=== PATIENT | female | born 1950 | race Caucasian/White ===

== ENCOUNTER → 2017-04-14 | Outpatient (CLI) | payer MEDICARE, OTHER ==
--- NOTE | 2017-04-14 11:39 | Diagnostic Imaging Report ---
INDICATION: Screening. TECHNIQUE: Screening digital mammography was performed bilaterally with a Computer Aided Detection (CAD) system. COMPARISON: 03/31/2016, 03/29/2015, and 03/22/2014. FINDINGS: There is a moderate amount of residual fibroglandular tissue bilaterally. There is no dominant mass, spiculated lesion, or suspicious calcification identified. There are benign type calcifications. There is no new dominant mass, spiculated lesion, or suspicious calcification identified. IMPRESSION: Benign findings. ACR BI-RADS Category 2: Benign findings. Result letter will be mailed to the patient. Note: At least 10% of breast cancer is not imaged by mammography. Dictated by: Dictated on workstation # [id number]
== END ==
LOC: RAD 10:21
PROVIDERS: ATTEND Obstetrics & Gynecology
DX: Z12.31 Encounter for screening mammogram for malignant neoplasm of breast (principal)
CPT/HCPCS: 77067

== ENCOUNTER 2017-04-23 05:41 | Outpatient (CLI) | payer MEDICARE, OTHER ==
[~2017-04-23] VITALS: Ht 165.1 cm; Wt 54.4 kg
[2017-04-23] MEDS ORDERED: TURM538C PO (14:32)
[2017-04-23] MEDS ORDERED: CALC-654 PO (14:32)
[2017-04-23] MEDS ORDERED: MULT1CAP27 PO (14:32)
[2017-04-23] MEDS ORDERED: L.AC1CAP6 PO (14:32)
[2017-04-23] MEDS ORDERED: OMEG1CAP58 PO (14:32)
== END 2017-04-23 15:00 ==
LOC: PREOP 05:41
PROVIDERS: ATTEND Surgery
DX: Z01.818 Encounter for other preprocedural examination (principal); Z12.11 Encounter for screening for malignant neoplasm of colon

== ENCOUNTER 2017-04-27 06:52 | Day surgery (SDC) | payer MEDICARE, OTHER ==
[~2017-04-27] VITALS: Ht 165.1 cm; Wt 54.4 kg
[~2017-04-27 06:52] MED LIST: CALC-654 PO; L.AC1CAP6 PO; MULT1CAP27 PO; OMEG1CAP58 PO; TURM538C PO
--- OUTSIDE RECORDS SUMMARY | 2017-04-27 06:56 | XMS REPORT ---
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 Info Not Available Non Drug Allergy Problems Problem Type Condition Code Onset Dates Condition Status Assessment Bug bites, initial encounter W57.XXXA Active Assessment Abscess L02.91 Active Medications Medication Code System Code Instructions Start Date End Date Status Dosage Bactrim DS [facility] [address]-21 800-160 MG Orally Twice a day Apr 01, 2016 Apr 11, 2016 1 tablet Triamcinolone Acetonide [facility] [address]-10 0.1 % Externally Twice a day Apr 01, 2016 1 application to affected area Procedures Procedure Coding System Code Date Office Visit, New Pt., Level 3 CPT-4 49267 Apr 01, 2016 [facility] VISIT NEW PATIENT CPT-4 G0466 Apr 01, 2016 Vital Signs Date/Time: Apr 01, 2016 Cardiac Monitoring Heart Rate 76 bpm Weight 127.8 lbs Height 64 in BMI 21.93 Index Blood Pressure Diastolic 72 mmHg Blood Pressure Systolic 108 mmHg Results No Known Results Summary Purpose eClinicalWorks Submission
--- OUTSIDE RECORDS SUMMARY | 2017-04-27 06:56 | XMS REPORT | Clinical Summary ---
Author Author [facility] Organization [facility] Address Unknown Phone Unavailable Care Team Providers Care Fruit Preserver Name Role Phone PCP Unavailable Source Comments Some departments are not documenting in the electronic medical record. If you do not see the information that you expected, contact Release of Information in the Health Information Management department at [phone] for further assistance in locating additional records.[facility] Allergies No Known Allergies Current Medications Prescription Sig. Disp. Refills Start End Date Status Date TAMSULOSIN HCL (FLOMAX Take by mouth. Active PO) Active Problems Not on file Social History Tobacco Use Types Packs/Day Years Used Date Never Smoker Sex Assigned at Date Recorded Not on file Last Filed Vital Signs Vital Sign Reading Time Taken Blood Pressure 138/85 07/01/2012 4:37 PM [employer] Pulse 65 07/01/2012 4:37 PM [employer] Temperature 36.8 C (98.3 F) 07/01/2012 4:37 PM [employer] Respiratory Rate 16 07/01/2012 4:37 PM [employer] Oxygen Saturation - - Inhaled Oxygen - - Concentration Weight 56.2 kg (124 lb) 07/01/2012 4:37 PM [employer] Height 165.1 cm (5' 5") 07/01/2012 4:37 PM [employer] Body Mass Index 20.63 07/01/2012 4:37 PM [employer] Plan of Treatment Health Maintenance Due Date Last Done Comments HEPATITIS C SCREENING 1949 PHYSICAL (COMPREHENSIVE) 1956 EXAM PERTUSSIS VACCINE 1960 TETANUS VACCINE 1966 BREAST CANCER SCREENING 1989 COLORECTAL CANCER 12/28/1999 SCREENING SHINGLES VACCINE 2009 OSTEOPOROSIS SCREENING 2014 PREVNAR/PNEUMOVAX (#1) 2014 INFLUENZA VACCINE 04/17/2017 Results Not on filefrom Last 3 Months
[2017-04-27] MEDS ORDERED: NS IV 500 ML 500 ML IV PRN (07:05)
[2017-04-27] MEDS ORDERED: NS IV 500 ML 500 ML ONE (07:07)
[2017-04-27 07:21] VITALS: BP 143/83
[2017-04-27] MEDS ORDERED: fentaNYL INJECTION 100 MCG/2 ML AMP ONE ×2 (07:47→08:10)
[2017-04-27] MEDS ORDERED: MIDAZOLAM 2 MG/2 ML (VERSED) VIAL ONE ×2 (07:47)
[2017-04-27] MEDS: fentaNYL INJECTION 100 MCG/2 ML AMP IVP PRN ×3 (08:05→08:15)
[2017-04-27] MEDS: MIDAZOLAM 2 MG/2 ML (VERSED) VIAL IVP PRN ×2 (08:06→08:09)
--- NOTE | 2017-04-27 08:28 | History & Physicial ---
History of Present Illness History of Present Illness Reason for visit/HPI to undergo screening colonoscopy. No family history of colon cancer Date of Admission Date Seen by Provider: Apr 27, 2017 Time Seen by Provider: 07:50 I consulted on this patient on 04/27/17 08:26 Attending Physician Ara Mota MD Admitting Physician Felipe Wellington MD Consult Allergies and Home Medications Allergies Coded Allergies: No Known Drug Allergies (Unverified , 04/23/17) Home Medications Calcium Carbonate/Vitamin D3 1 Each Tablet, 1 EACH PO DAILY, (Reported) L.acidoph & Paracasei,B.lactis 1 Each Capsule, 1 EACH PO DAILY, (Reported) Multivitamin 1 Each Capsule, 1 EACH PO DAILY, (Reported) Brewster-3 Fatty Acids/Fish Oil 1 Each Capsule, 1 EACH PO DAILY, (Reported) Turmeric Root Extract 538 Mg Capsule, 538 MG PO DAILY, (Reported) Past Jcpwxog-Jzrejx-Kchkgx Hx Patient Social History Marrital Status: Employed/Student: retired Alcohol Use: Rarely Uses Recreational Drug Use: No Smoking Status: Never a Smoker Recent Foreign Travel: No Contact w/other who traveled: No Recent Hopitalizations: No Recent Infectious Disease Expo: No Immunizations Up To Date Date of Pneumonia Vaccine: Jul 17, 2016 Seasonal Allergies Seasonal Allergies: Yes Surgeries Yes Appendectomy Respiratory No Currently Using CPAP: No Currently Using BIPAP: No Cardiovascular No Neurological No Reproductive System Hx Reproductive Disorders: No Sexually Transmitted Disease: No HIV/AIDS: No Female Reproductive Disorders: Denies Genitourinary No Gastrointestinal Chronic Constipation Musculoskeletal No Endocrine History of Endocrine Disorders: No HEENT History of HEENT Disorders: No Loss of Vision: Denies Hearing Impairment: Denies Cancer No Psychosocial History of Psychiatric Problem: No Integumentary History of Skin or Integumenta: No Family Medical History Significant Family History: No Pertinent Family Hx Constitutional: no symptoms reported EENTM: no symptoms reported Respiratory: no symptoms reported Cardiovascular: no symptoms reported Gastrointestinal: constipation Musculoskeletal: no symptoms reported Skin: no symptoms reported Psychiatric/Neurological: No Symptoms Reported Physical Exam Vital Signs Vital Sign - Last 12Hours 04/27/17 07:21 Temp 98.3 Pulse 58 Resp 18 B/P (MAP) 143/83 Pulse Ox 98 O2 Delivery Room Air Capillary Refill : General Appearance: No Apparent Distress HEENT: Normal ENT Inspection Neck: Normal Inspection Respiratory: Lungs Clear Cardiovascular: Regular Rate, Rhythm Gastrointestinal: Normal Bowel Sounds Rectal: Deferred Extremity: Normal Inspection Neurologic/Psychiatric: Alert, Oriented x3 Skin: Warm/Dry Assessment/Plan Assessment and Plan lady to undergo screening colonoscopy. Procedure details, iatrogenic perforation, post polypectomy bleeding etc. discussed explicitly. Willing to proceed. Problems: ARA MOTA MD Apr 27, 2017 8:28 am
--- NOTE | 2017-04-27 08:29 | Conscious Sedation/ASA ---
Conscious Sedation Pre-Proced Time Reviewed: 07:50 ASA Class: 1 Airway Mallampati Classification: ([place] appropriate class) I. II. III, IV Lungs Heart ASA score ASA 1: a normal healthy patient ASA 2: a patient with a mild systemic disease (mid diabetes, controlled hypertension, obesity ASA 3: a patient with a severe systemic disease that limits activity (angina , COPD, prior Myocardial infarction) ASA 4: a patient with an incapacitating disease that is a constant threat to life (CHF, renal failure) ASA 5: a moribund patient not expected to survive 24 hrs. (ruptured aneurysm) ASA 6: a declared brain patient whose organs are being harvested. For emergent operations, add the letter E after the classification Grade 1 Sedation Plan: Discussed options with patient/fam Note The patient is an appropriate candidate to undergo the planned procedure, sedation, and anesthesia. The patient immediately re-assessed prior to indication. ARA MOTA MD Apr 27, 2017 8:29 am
--- NOTE | 2017-04-27 08:32 | Discharge Inst-Simple/Standard ---
Discharge Inst-Standard Discharge Medications New, Converted or Re-Newed RX: Other Patient Instructions/Follow Up Plan of Care/Instructions/FU: repeat colonoscopy in 10 years Activity as Tolerated: Yes Discharge Diet: No Restrictions ARA MOTA MD Apr 27, 2017 8:32 am
--- NOTE | 2017-04-27 08:32 | Endo Procedure Record ---
Endo Procedure Report Date of Procedure Apr 27, 2017 Surgeon (s) ARA MOTA MD Post Procedure/Op Diagnosis normal colonoscopy Procedure Performed colonoscopy to cecum Description of Procedure Anesthesia Type: Conscious Sedation Specimen(s) collected/removed none Description of the Procedure Indication for procedure: This lady came in for screening colonoscopy. She denied any family history of colon cancer. Informed consent was obtained after reviewing the procedure in detail. Description of the procedure: She was placed in left lateral decubitus position and her vital signs were monitored. Conscious sedation was achieved using Versed and fentanyl. Examination of the perianal area revealed external hemorrhoids. Digital examination was otherwise unremarkable. The colonoscope was then introduced into the rectum and advanced all the way up to the cecum. The quality of the bowel preparation was excellent.the scope was then withdrawn slowly and the mucosa examined in a systematic fashion. There was no abnormality. She tolerated the procedure well and was taken back to the nursing area in a stable condition. Impression: Normal screening colonoscopy. Recommend repeating in 10 years. Copies To: ALEXX THAKKAR MD, XAVIER M MD Apr 27, 2017 8:32 am
[2017-04-27 08:48] VITALS: BP 111/70
[2017-04-27 09:30] VITALS: BP 132/74
[2017-04-27 09:35] VITALS: BP 132/74
== END 2017-04-27 09:35 | disposition home or self-care (01) ==
LOC: ENDO 06:52
PROVIDERS: ATTEND Surgery
DX: Z12.11 Encounter for screening for malignant neoplasm of colon (principal)

== ENCOUNTER → 2018-04-26 | Outpatient (CLI) | payer MEDICARE, OTHER ==
--- NOTE | 2018-04-26 18:22 | Diagnostic Imaging Report ---
Indication: Routine screening. Comparison is made with prior mammogram from 04/14/2017 and 03/31/2016. 2-D and 3-D bilateral screening mammography was performed with CAD. Both breasts show marked parenchymal heterogeneity and increased density, limiting the sensitivity of mammography. No discrete mass or malignant-appearing microcalcifications are seen. The axillae are unremarkable. Impression: BI-RADS category 2 No mammographic features suspicious for malignancy are identified. ACR BI-RADS Category 2: Benign findings. Result letter will be mailed to the patient. Note: At least 10% of breast cancer is not imaged by mammography. Dictated by: Dictated on workstation # [id number]
== END ==
LOC: RAD 09:55
PROVIDERS: ATTEND Nurse Practitioner
DX: Z12.31 Encounter for screening mammogram for malignant neoplasm of breast (principal)
CPT/HCPCS: 77067

== ENCOUNTER → 2019-05-02 | Outpatient (CLI) | payer MEDICARE, OTHER ==
--- NOTE | 2019-05-02 12:43 | Diagnostic Imaging Report ---
INDICATION: Routine screening. COMPARISON: 04/26/2018 and 04/14/2017. TECHNIQUE: 2D and 3D bilateral screening mammography was performed with CAD. FINDINGS: Both breasts show marked parenchymal heterogeneity and increased density, limiting the sensitivity of mammography. No mass or malignant appearing microcalcifications are seen. The axillae are unremarkable. IMPRESSION: No mammographic features suspicious for malignancy are identified. ACR BI-RADS Category 1: Negative. Result letter will be mailed to the patient. Note: At least 10% of breast cancer is not imaged by mammography. Dictated by: Dictated on workstation # [id number]
== END ==
LOC: RAD 09:15
PROVIDERS: ATTEND Obstetrics & Gynecology
DX: Z12.31 Encounter for screening mammogram for malignant neoplasm of breast (principal)
CPT/HCPCS: 77067

== ENCOUNTER → 2020-05-14 | Outpatient (CLI) | payer MEDICARE, OTHER ==
--- NOTE | 2020-05-14 19:45 | Diagnostic Imaging Report ---
EXAM: Digital mammogram, bilateral screening. COMPARISONS: 05/02/2019, 04/26/2018 and 04/14/2017. There are no current complaints. FINDINGS: The fibroglandular tissue in both breasts is extremely dense. This does limit the sensitivity of this exam. The tomographic images do show an area of architectural distortion in the medial aspect of the left breast near midline (slice 22/53). There seems to be a corresponding although not as conspicuous area of architectural distortion in the midportion of the breast on the MLO view roughly 4-5 cm from the nipple. I would recommend that a compression/magnification view of this area be obtained in both the CC and MLO projections. Ultrasound should also be performed. The right breast is unchanged. IMPRESSION: Additional mammographic views and ultrasound of the left breast would be recommended for further study. ACR category 0 ACR BI-RADS Category 0: Incomplete. (Needs additional imaging evaluation). Result letter will be mailed to the patient. Note: At least 10% of breast cancer is not imaged by mammography. Dictated by: Dictated on workstation # [id number]
== END ==
LOC: RAD 10:45
PROVIDERS: ATTEND Internal Medicine
DX: Z12.31 Encounter for screening mammogram for malignant neoplasm of breast (principal); R92.8 Other abnormal and inconclusive findings on diagnostic imaging of breast
CPT/HCPCS: 77063; 77067

== ENCOUNTER → 2020-05-16 | Outpatient (CLI) | payer MEDICARE, OTHER ==
--- NOTE | 2020-05-16 08:49 | Diagnostic Imaging Report ---
EXAMINATION: Diagnostic left mammogram with CAD. INDICATION: Abnormal screening mammogram. FINDINGS: The recent screening mammogram performed on 05/14/2020 suggested an area of architectural distortion in the mid medial aspect of the left breast at middle depth. The compression views of this area again show that there is distortion of the normal breast architecture. This finding could be secondary to a radial scar. The possibility that this is related to an underlying malignancy should also be considered. It is my understanding that the patient has not had a prior breast biopsy. IMPRESSION: There seems to be a persistent area of architectural distortion in the mid medial aspect of the left breast. Ultrasound would be recommended for further evaluation. ACR BI-RADS Category 0: Incomplete. (Needs additional imaging evaluation). Result letter will be mailed to the patient. Note: At least 10% of breast cancer is not imaged by mammography. Dictated by: Dictated on workstation # [id number]
--- NOTE | 2020-05-16 09:44 | Diagnostic Imaging Report ---
EXAMINATION: Ultrasound left breast Limited. INDICATION: Abnormal mammogram The screening mammogram performed on 05/14/2020 suggested an area of architectural distortion in the mid medial aspect of the left breast. This area persisted on the diagnostic mammogram performed earlier today. On this exam there is a poorly defined 1.8 x 1.2 x 1.5 cm irregular hypoechoic area near the chest wall in the 11 o'clock position roughly 2 cm from the lymph node. This would correspond to the finding of the mammogram and this finding is worrisome for malignancy. I would recommend that a ultrasound-guided biopsy be performed to exclude malignancy. During the course of the exam a prominent 2.4 x 1.0 x 1.4 cm lymph node was also identified in the left axilla. Although the lymph node is prominent there is no clear evidence for replacement of the cortex by a malignant process. Even so, micrometastases could be present. IMPRESSION: 1. There is a poorly defined 1.8 x 1.2 x 1.5 cm mass near the chest wall in the 11 o'clock position of the breast. This finding is worrisome for malignancy and an ultrasound-guided biopsy would be recommended. 2. These results were called to Dr. DENNIS Wellington. ACR BI-RADS Category 4: Suspicious abnormality. Dictated by: Dictated on workstation # [id number]
== END ==
LOC: RAD 08:15
PROVIDERS: ATTEND Physician Assistant
DX: N63.22 Unspecified lump in the left breast, upper inner quadrant (principal)
CPT/HCPCS: 76642; 77065; G0279

== ENCOUNTER → 2020-05-21 | Outpatient (CLI) | payer MEDICARE, OTHER ==
[~2020-05-21] VITALS: Ht 165.1 cm; Wt 53.6 kg
[~2020-05-21] MED LIST changes: +LIDOCAINE 1% INJ 20 ML 20 ML VIAL INJ ONE
--- NOTE | 2020-05-21 10:21 | Diagnostic Imaging Report ---
INDICATION: Left breast mass. Patient presents for ultrasound-guided biopsy. DETAILS OF THE PROCEDURE: The patient was brought to the ultrasound suite and placed on the table in the supine position. Ultrasound imaging over the left breast was performed to evaluate for an appropriate entry site. The left breast was prepped and draped in the usual sterile fashion. A small amount of 1% lidocaine was utilized for local anesthesia. A total of three passes was made into the hypoechoic mass at the 11 o'clock location of the left breast 2 cm from the nipple utilizing a 14-gauge Achieve needle. Core biopsies were obtained. A marker clip was then deployed. Hemostasis was obtained using manual compression. The patient tolerated the procedure well and was sent for a post procedure mammogram in satisfactory condition. IMPRESSION: Successful ultrasound-guided core biopsy of the hypoechoic mass in the left breast at the 11 o'clock location. Pathology results are currently pending. Dictated by: Dictated on workstation # [id number]
--- NOTE | 2020-05-21 13:21 | Diagnostic Imaging Report ---
INDICATION: Left breast mass. Patient is status post ultrasound-guided biopsy. TECHNIQUE/FINDINGS: 2D cc and ML mammography of the left breast was performed post biopsy. There is a marker clip in the region of the previously noted area of architectural distortion in the upper slightly inner left breast post biopsy. Pathology results are pending. IMPRESSION: Clip in the left breast, as described. Dictated by: Dictated on workstation # [id number]
== END ==
LOC: RAD 09:00
PROVIDERS: ATTEND Physician Assistant
DX: N63.21 Unspecified lump in the left breast, upper outer quadrant (principal); R92.8 Other abnormal and inconclusive findings on diagnostic imaging of breast
CPT/HCPCS: 19083; 77065; A4648; G0279

== ENCOUNTER → 2020-05-29 | Outpatient (CLI) | payer MEDICARE, OTHER ==
[~2020-05-29] MED LIST changes: -LIDOCAINE 1% INJ 20 ML 20 ML VIAL INJ ONE
--- NOTE | 2020-05-29 13:35 | Diagnostic Imaging Report ---
INDICATION: Breast carcinoma, initial staging. TECHNIQUE: Serum blood glucose level at the time of injection was 96 mg/dL. Patient was administered 14.4 mCi F-18 FDG intravenously in the right antecubital location and PET imaging was performed from the top of skull to mid thighs. Noncontrast CT was also performed for attenuation correction and anatomic correlation. COMPARISON: No prior PET study is available for comparison. FINDINGS: There is symmetric activity throughout the brain. Soft tissues of the neck are unremarkable. No mediastinal or hilar hypermetabolism is identified. No pulmonary parenchymal hypermetabolism is identified. Abdomen and pelvis demonstrate physiologic activity within the gastrointestinal and genitourinary tracts. No suspicious uptake is identified. IMPRESSION: Unremarkable PET/CT study. No suspicious region of hypermetabolism is identified. Dictated by: Dictated on workstation # [id number]
== END ==
LOC: RAD 08:15
PROVIDERS: ATTEND Internal Medicine Hematology & Oncology
DX: C50.919 Malignant neoplasm of unspecified site of unspecified female breast (principal); R59.9 Enlarged lymph nodes, unspecified
CPT/HCPCS: 78815; A9552

== ENCOUNTER 2020-08-16 11:00 | Outpatient (RCR) | payer MEDICARE, OTHER ==
[2020-06-06 14:24] LABS: BASOPHILS # (AUTO) 0.1 10^3/uL (0.0-0.1); BASOPHILS % (AUTO) 1 % (0-10); EOSINOPHILS # (AUTO) 0.2 10^3/uL (0.0-0.3); EOSINOPHILS % (AUTO) 2 % (0-10); HEMATOCRIT 36 % (35-52); LYMPHOCYTES # (AUTO) 1.7 10^3/uL (1.0-4.0); LYMPHOCYTES % (AUTO) 23 % (12-44); MEAN CORPUSCULAR HEMOGLOBIN 29 pg (25-34); MEAN CORPUSCULAR HGB CONC 34 g/dL (32-36); MEAN CORPUSCULAR VOLUME 86 fL (80-99); MEAN PLATELET VOLUME 10.5 fL (9.0-12.2); MONOCYTES # (AUTO) 0.5 10^3/uL (0.0-1.0); MONOCYTES % (AUTO) 7 % (0-12); NEUTROPHILS # (AUTO) 4.8 10^3/uL (1.8-7.8); NEUTROPHILS % (AUTO) 66 % (42-75); PLATELET COUNT 244 10^3/uL (130-400); WHITE BLOOD COUNT 7.3 10^3/uL (4.3-11.0)
[2020-06-06 14:46] LABS: ALANINE AMINOTRANSFERASE 18 U/L (0-55); ALBUMIN 3.9 GM/DL (3.2-4.5); ALKALINE PHOSPHATASE 48 U/L (40-136); BILIRUBIN,TOTAL 0.3 MG/DL (0.1-1.0); BUN/CREATININE RATIO 25; CALCIUM 8.8 MG/DL (8.5-10.1); CARBON DIOXIDE 26 MMOL/L (21-32); CHLORIDE 102 MMOL/L (98-107); CREATININE SERUM 0.79 MG/DL (0.60-1.30); GFR ESTIMATED > 60; GLUCOSE 94 MG/DL (70-105); POTASSIUM 3.7 MMOL/L (3.6-5.0); SODIUM 138 MMOL/L (135-145); TOTAL PROTEIN 6.7 GM/DL (6.4-8.2)
[2020-08-16 13:05] LABS: BASOPHILS # (AUTO) 0.1 10^3/uL (0.0-0.1); BASOPHILS % (AUTO) 1 % (0-10); EOSINOPHILS # (AUTO) 0.1 10^3/uL (0.0-0.3); EOSINOPHILS % (AUTO) 2 % (0-10); HEMATOCRIT 42 % (35-52); HEMOGLOBIN 13.4 g/dL (11.5-16.0); LYMPHOCYTES # (AUTO) 1.2 10^3/uL (1.0-4.0); LYMPHOCYTES % (AUTO) 21 % (12-44); MEAN CORPUSCULAR HEMOGLOBIN 28 pg (25-34); MEAN CORPUSCULAR HGB CONC 32 g/dL (32-36); MEAN CORPUSCULAR VOLUME 87 fL (80-99); MEAN PLATELET VOLUME 11.7 fL (9.0-12.2); MONOCYTES # (AUTO) 0.6 10^3/uL (0.0-1.0); MONOCYTES % (AUTO) 10 % (0-12); NEUTROPHILS # (AUTO) 3.8 10^3/uL (1.8-7.8); NEUTROPHILS % (AUTO) 66 % (42-75); PLATELET COUNT 242 10^3/uL (130-400); WHITE BLOOD COUNT 5.7 10^3/uL (4.3-11.0)
[2020-08-16 13:18] LABS: ALANINE AMINOTRANSFERASE 23 U/L (0-55); ALBUMIN 4.1 GM/DL (3.2-4.5); ALKALINE PHOSPHATASE 58 U/L (40-136); BILIRUBIN,TOTAL 0.4 MG/DL (0.1-1.0); BUN/CREATININE RATIO 23; CALCIUM 9.1 MG/DL (8.5-10.1); CARBON DIOXIDE 27 MMOL/L (21-32); CHLORIDE 103 MMOL/L (98-107); CREATININE SERUM 0.81 MG/DL (0.60-1.30); GFR ESTIMATED > 60; GLUCOSE 104 MG/DL (70-105); POTASSIUM 3.5 MMOL/L (3.6-5.0); SODIUM 140 MMOL/L (135-145)
== END 2020-08-26 | disposition home or self-care (01) ==
LOC: ONC 11:00
PROVIDERS: ATTEND Internal Medicine Hematology & Oncology
DX: C50.912 Malignant neoplasm of unspecified site of left female breast (principal)
CPT/HCPCS: 77290; 77295; 77300; 77334; 80053; 82306; 85025; 99204; 99213; 99214

== ENCOUNTER → 2020-08-21 | Outpatient (CLI) | payer MEDICARE, OTHER ==
--- NOTE | 2020-08-22 08:21 | Diagnostic Imaging Report ---
INDICATION: Postmenopausal female. COMPARISON: 09/10/2010 FINDINGS: AP Spine L1-L3: [BMD (g/cm2): 0.953] [T-Score: -1.8] [Z-Score: 0.2] [BMD Previous: NA] [BMD % Change: NA] LT Hip Neck: [BMD (g/cm2): 0.687] [T-Score: -2.5] [Z-Score: -0.6] LT Hip Total: [BMD (g/cm2):0.754] [T-Score:-2.0] [Z-Score: -0.3] RT Hip Neck: [BMD (g/cm2):0.708] [T-Score:-2.4] [Z-Score:-0.4] RT Hip Total: [BMD (g/cm2):0.749] [T-score:-2.0] [Z-Score:-0.3] The change in the mean hip bone density has decreased by 0.031 g/sq cm, and by 4% by 2010, which is not statistically significant. *Indicates significant change from prior examination based on 95% confidence level. World Health Organization criteria for BMD interpretation classify patients as Normal (T-score at or above -1.0), Osteopenic (T-score between -1.0 and -2.5) or Osteoporotic (T-score at or below -2.5). LIMITATIONS AND MODIFICATION: Degenerative change in the lower lumbar spine may falsely elevate bone density. L4 was excluded due to disproportion T score, and the prior lumbar spine comparison is not applicable. FRACTURE RISK (FRAX SCORE): The ten year probability of (%): Major Osteoporotic Fracture: [NA] Hip Fracture: [NA] IMPRESSION: 1. Osteoporosis. 2. No significant change in bone mineral density since prior examination. 3. See below National Osteoporosis Foundation guidelines on when to potentially initiate pharmacologic therapy. Based on the National Osteoporosis Foundation Guidelines, pharmacologic treatment should be initiated in any of the following, unless clinical conditions suggest otherwise: * Any patient with prior fragility fracture of the hip or vertebrae. A spine fracture indicates 5X risk for subsequent spine fracture and 2X risk for subsequent hip fracture. * Osteoporosis (T-score <-2.5). * Postmenopausal women and men age 50 and older with low bone mass/osteopenia (T-score between -1.0 and -2.5) by DXA and 10-year major osteoporotic fracture greater than 20% or a 10-year probability of hip fracture greater than 3%. These fracture risks are supplied above in the FRAX score, if applicable. * Clinician judgement and/or patient preferences may indicate treatment for people with 10-year fracture probabilities above or below these levels. Dictated by: Dictated on workstation # [id number]
== END ==
LOC: RAD 08:59
PROVIDERS: ATTEND Internal Medicine Hematology & Oncology
DX: M81.0 Age-related osteoporosis without current pathological fracture (principal); C50.112 Malignant neoplasm of central portion of left female breast; Z78.0 Asymptomatic menopausal state; Z79.811 Long term (current) use of aromatase inhibitors
CPT/HCPCS: 77080

== ENCOUNTER → 2020-08-24 | Outpatient (CLI) | payer MEDICARE, OTHER ==
[~2020-08-24] MED LIST changes: +CATHETER FLUSH 10 ML SYR IV PRN; +HOLD METFORMIN - RECEIVED CONTRAST 20 ML VIAL IV SCH; +IOHEXOL 350 MG/ML 100 ML (OMNIPAQUE 350) VIAL IV ONE; +NS 100 ML (IVPB) BAG IV ONE
--- NOTE | 2020-08-24 14:41 | Diagnostic Imaging Report ---
INDICATION: Left breast lumpectomy 07/26/2020 for breast carcinoma. Patient was administered 26.7 mCi technetium 99 M MDP intravenously and whole-body imaging was performed after a 3-hour delay. No prior bone scan is available for comparison. There is normal uptake of activity by the axial and appendicular skeleton. There is uptake of activity by both kidneys with excretion into the urinary bladder. No suspicious foci of trace accumulation is seen to suggest osseous metastatic disease. IMPRESSION: No scintigraphic evidence of osseous metastatic disease. Dictated by: Dictated on workstation # [id number]
--- NOTE | 2020-08-24 15:48 | Diagnostic Imaging Report ---
PROCEDURE: CT chest and abdomen with contrast. TECHNIQUE: Multiple contiguous axial images were obtained through the chest and abdomen after the administration of intravenous contrast. Auto Exposure Controls were utilized during the CT exam to meet ALARA standards for radiation dose reduction. INDICATION: Left breast cancer. Correlated with metabolic PET CT 05/29/2020. CHEST: Postsurgical changes to the left chest wall and breast unchanged. No pulmonary nodule or suspicious lung mass. No thoracic lymphadenopathy. No chest wall fluid collection. No pleural effusion. No pneumothorax. No infiltrate. Vascular structures patent and nonaneurysmal. There has been no change from correlative PET scan. ABDOMEN: The liver appeared negative. The spleen, adrenals and pancreas are unremarkable. There is no abdominal mesenteric or retroperitoneal adenopathy. No ascites, fluid collection or obstructive features. There is no suspicious lytic or sclerotic bony lesion. IMPRESSION: Unremarkable CT chest and abdomen. No findings to suggest neoplastic recurrence. Dictated by: Dictated on workstation # [id number]
== END ==
LOC: CARD 12:00
PROVIDERS: ATTEND Internal Medicine Hematology & Oncology
DX: C50.112 Malignant neoplasm of central portion of left female breast (principal); Z79.811 Long term (current) use of aromatase inhibitors; Z78.0 Asymptomatic menopausal state
CPT/HCPCS: 71260; 74160; 78306; A9503

== ENCOUNTER → 2020-08-28 | Outpatient (RCR) | payer MEDICARE, OTHER ==
[~2020-08-28] MED LIST changes: -CATHETER FLUSH 10 ML SYR IV PRN; -HOLD METFORMIN - RECEIVED CONTRAST 20 ML VIAL IV SCH; -IOHEXOL 350 MG/ML 100 ML (OMNIPAQUE 350) VIAL IV ONE; -NS 100 ML (IVPB) BAG IV ONE
== END | disposition home or self-care (01) ==
LOC: ONC 08-27 09:24
PROVIDERS: ATTEND Internal Medicine Hematology & Oncology
DX: C50.112 Malignant neoplasm of central portion of left female breast (principal); M81.0 Age-related osteoporosis without current pathological fracture; M85.88 Other specified disorders of bone density and structure, other site; Z79.811 Long term (current) use of aromatase inhibitors; Z78.0 Asymptomatic menopausal state; Z90.12 Acquired absence of left breast and nipple; Z98.890 Other specified postprocedural states
CPT/HCPCS: 77417

== ENCOUNTER 2020-10-16 13:43 | Outpatient (RCR) | payer MEDICARE, OTHER ==
[2020-09-25 14:38] LABS: BASOPHILS # (AUTO) 0.1 10^3/uL (0.0-0.1); BASOPHILS % (AUTO) 1 % (0-10); EOSINOPHILS # (AUTO) 0.1 10^3/uL (0.0-0.3); EOSINOPHILS % (AUTO) 2 % (0-10); HEMATOCRIT 40 % (35-52); HEMOGLOBIN 13.4 g/dL (11.5-16.0); LYMPHOCYTES # (AUTO) 0.8 10^3/uL (1.0-4.0); LYMPHOCYTES % (AUTO) 13 % (12-44); MEAN CORPUSCULAR HEMOGLOBIN 29 pg (25-34); MEAN CORPUSCULAR HGB CONC 34 g/dL (32-36); MEAN CORPUSCULAR VOLUME 86 fL (80-99); MEAN PLATELET VOLUME 10.2 fL (9.0-12.2); MONOCYTES # (AUTO) 0.7 10^3/uL (0.0-1.0); MONOCYTES % (AUTO) 11 % (0-12); NEUTROPHILS # (AUTO) 4.6 10^3/uL (1.8-7.8); NEUTROPHILS % (AUTO) 73 % (42-75); PLATELET COUNT 193 10^3/uL (130-400); WHITE BLOOD COUNT 6.3 10^3/uL (4.3-11.0)
[2020-09-25 14:58] LABS: ALANINE AMINOTRANSFERASE 34 U/L (0-55); ALKALINE PHOSPHATASE 57 U/L (40-136); BILIRUBIN,TOTAL 0.3 MG/DL (0.1-1.0); BUN/CREATININE RATIO 21; CARBON DIOXIDE 29 MMOL/L (21-32); CHLORIDE 102 MMOL/L (98-107); CREATININE SERUM 0.75 MG/DL (0.60-1.30); GFR ESTIMATED > 60; GLUCOSE 113 MG/DL (70-105); POTASSIUM 3.4 MMOL/L (3.6-5.0); SODIUM 139 MMOL/L (135-145); TOTAL PROTEIN 6.8 GM/DL (6.4-8.2)
[2020-10-16 13:58] LABS: BASOPHILS # (AUTO) 0.1 10^3/uL (0.0-0.1); BASOPHILS % (AUTO) 1 % (0-10); EOSINOPHILS # (AUTO) 0.1 10^3/uL (0.0-0.3); EOSINOPHILS % (AUTO) 2 % (0-10); HEMATOCRIT 39 % (35-52); HEMOGLOBIN 12.9 g/dL (11.5-16.0); LYMPHOCYTES # (AUTO) 0.6 10^3/uL (1.0-4.0); LYMPHOCYTES % (AUTO) 12 % (12-44); MEAN CORPUSCULAR HEMOGLOBIN 29 pg (25-34); MEAN CORPUSCULAR HGB CONC 33 g/dL (32-36); MEAN CORPUSCULAR VOLUME 88 fL (80-99); MEAN PLATELET VOLUME 10.1 fL (9.0-12.2); MONOCYTES # (AUTO) 0.7 10^3/uL (0.0-1.0); MONOCYTES % (AUTO) 13 % (0-12); NEUTROPHILS # (AUTO) 3.9 10^3/uL (1.8-7.8); NEUTROPHILS % (AUTO) 72 % (42-75); PLATELET COUNT 188 10^3/uL (130-400); WHITE BLOOD COUNT 5.3 10^3/uL (4.3-11.0)
[2020-10-16 14:19] LABS: ALANINE AMINOTRANSFERASE 24 U/L (0-55); ALBUMIN 3.9 GM/DL (3.2-4.5); ALKALINE PHOSPHATASE 55 U/L (40-136); BILIRUBIN,TOTAL 0.4 MG/DL (0.1-1.0); BUN/CREATININE RATIO 26; CALCIUM 8.5 MG/DL (8.5-10.1); CARBON DIOXIDE 26 MMOL/L (21-32); CHLORIDE 104 MMOL/L (98-107); CREATININE SERUM 0.84 MG/DL (0.60-1.30); GFR ESTIMATED > 60; GLUCOSE 96 MG/DL (70-105); POTASSIUM 3.8 MMOL/L (3.6-5.0); SODIUM 139 MMOL/L (135-145); TOTAL PROTEIN 6.3 GM/DL (6.4-8.2)
== END 2020-11-27 | disposition home or self-care (01) ==
LOC: ONC 13:43
PROVIDERS: ATTEND Internal Medicine Hematology & Oncology
DX: C50.112 Malignant neoplasm of central portion of left female breast (principal); M81.0 Age-related osteoporosis without current pathological fracture; M85.88 Other specified disorders of bone density and structure, other site; Z79.811 Long term (current) use of aromatase inhibitors; Z78.0 Asymptomatic menopausal state; Z90.12 Acquired absence of left breast and nipple; Z98.890 Other specified postprocedural states
CPT/HCPCS: 77412; 77470; G0463; 77307; 77334; 77336; 77417; 80053; 82306; 85025; 99213

== ENCOUNTER 2021-01-15 13:32 | Outpatient (RCR) | payer MEDICARE, OTHER ==
[2021-01-15 13:45] LABS: BASOPHILS # (AUTO) 0.1 10^3/uL (0.0-0.1); BASOPHILS % (AUTO) 1 % (0-10); EOSINOPHILS # (AUTO) 0.1 10^3/uL (0.0-0.3); EOSINOPHILS % (AUTO) 2 % (0-10); HEMATOCRIT 40 % (35-52); HEMOGLOBIN 13.5 g/dL (11.5-16.0); LYMPHOCYTES # (AUTO) 0.9 10^3/uL (1.0-4.0); LYMPHOCYTES % (AUTO) 16 % (12-44); MEAN CORPUSCULAR HEMOGLOBIN 29 pg (25-34); MEAN CORPUSCULAR HGB CONC 34 g/dL (32-36); MEAN CORPUSCULAR VOLUME 87 fL (80-99); MEAN PLATELET VOLUME 9.8 fL (9.0-12.2); MONOCYTES # (AUTO) 0.5 10^3/uL (0.0-1.0); MONOCYTES % (AUTO) 8 % (0-12); NEUTROPHILS # (AUTO) 4.3 10^3/uL (1.8-7.8); NEUTROPHILS % (AUTO) 73 % (42-75); PLATELET COUNT 237 10^3/uL (130-400); WHITE BLOOD COUNT 5.9 10^3/uL (4.3-11.0)
[2021-01-15 14:08] LABS: ALANINE AMINOTRANSFERASE 19 U/L (0-55); ALBUMIN 3.9 GM/DL (3.2-4.5); ALKALINE PHOSPHATASE 48 U/L (40-136); BILIRUBIN,TOTAL 0.5 MG/DL (0.1-1.0); BUN/CREATININE RATIO 23; CALCIUM 9.5 MG/DL (8.5-10.1); CARBON DIOXIDE 32 MMOL/L (21-32); CHLORIDE 102 MMOL/L (98-107); CREATININE SERUM 0.81 MG/DL (0.60-1.30); GFR ESTIMATED > 60; GLUCOSE 115 MG/DL (70-105); POTASSIUM 3.4 MMOL/L (3.6-5.0); SODIUM 139 MMOL/L (135-145); TOTAL PROTEIN 6.7 GM/DL (6.4-8.2)
== END 2021-02-26 | disposition home or self-care (01) ==
LOC: ONC 13:32
PROVIDERS: ATTEND Internal Medicine Hematology & Oncology
DX: C50.112 Malignant neoplasm of central portion of left female breast (principal); M81.0 Age-related osteoporosis without current pathological fracture; M85.88 Other specified disorders of bone density and structure, other site; Z79.811 Long term (current) use of aromatase inhibitors; Z78.0 Asymptomatic menopausal state; Z90.12 Acquired absence of left breast and nipple; Z98.890 Other specified postprocedural states; Z92.3 Personal history of irradiation
CPT/HCPCS: 80053; 85025; 99213

== ENCOUNTER 2021-05-16 14:28 | Outpatient (RCR) | payer MEDICARE, OTHER ==
[2021-04-29 10:06] LABS: BASOPHILS # (AUTO) 0.1 10^3/uL (0.0-0.1); BASOPHILS % (AUTO) 1 % (0-10); EOSINOPHILS # (AUTO) 0.1 10^3/uL (0.0-0.3); EOSINOPHILS % (AUTO) 2 % (0-10); HEMATOCRIT 44 % (35-52); HEMOGLOBIN 14.4 g/dL (11.5-16.0); LYMPHOCYTES # (AUTO) 0.8 10^3/uL (1.0-4.0); LYMPHOCYTES % (AUTO) 14 % (12-44); MEAN CORPUSCULAR HEMOGLOBIN 29 pg (25-34); MEAN CORPUSCULAR HGB CONC 33 g/dL (32-36); MEAN CORPUSCULAR VOLUME 90 fL (80-99); MEAN PLATELET VOLUME 9.5 fL (9.0-12.2); MONOCYTES # (AUTO) 0.6 10^3/uL (0.0-1.0); MONOCYTES % (AUTO) 10 % (0-12); NEUTROPHILS % (AUTO) 72 % (42-75); PLATELET COUNT 235 10^3/uL (130-400); WHITE BLOOD COUNT 5.6 10^3/uL (4.3-11.0)
[2021-04-29 10:43] LABS: ALBUMIN 4.2 GM/DL (3.2-4.5); BILIRUBIN,TOTAL 0.6 MG/DL (0.1-1.0); CALCIUM 9.4 MG/DL (8.5-10.1); CREATININE SERUM 0.87 MG/DL (0.60-1.30); POTASSIUM 3.8 MMOL/L (3.6-5.0); TOTAL PROTEIN 7.1 GM/DL (6.4-8.2)
== END 2021-07-28 | disposition home or self-care (01) ==
LOC: ONC 14:28
PROVIDERS: ATTEND Internal Medicine Hematology & Oncology
DX: C50.112 Malignant neoplasm of central portion of left female breast (principal); M81.0 Age-related osteoporosis without current pathological fracture; Z79.811 Long term (current) use of aromatase inhibitors; Z78.0 Asymptomatic menopausal state; Z90.12 Acquired absence of left breast and nipple; Z98.890 Other specified postprocedural states; Z92.3 Personal history of irradiation
CPT/HCPCS: 80053; 85025; G0463; 99213

== ENCOUNTER 2021-07-29 09:50 | Outpatient (RCR) | payer MEDICARE, OTHER | END 2021-08-16 | disposition home or self-care (01) | LOC: ONC 09:50 | PROVIDERS: ATTEND Internal Medicine Hematology & Oncology | DX: C50.112 Malignant neoplasm of central portion of left female breast (principal); M81.0 Age-related osteoporosis without current pathological fracture; Z79.811 Long term (current) use of aromatase inhibitors; Z78.0 Asymptomatic menopausal state; Z90.12 Acquired absence of left breast and nipple; Z98.890 Other specified postprocedural states; Z92.3 Personal history of irradiation | CPT/HCPCS: 99213 ==